=== PATIENT | female | born 1970 | race Caucasian/White ===

== ENCOUNTER 2020-04-18 11:47 | Emergency (ER) | payer BC ==
--- NOTE | 2020-04-18 12:45 | CR ---
DATE OF SERVICE: 04/18/20 CLINICAL DATA: Pain, swelling- trauma RIGHT FOOT: There are mildly displaced fractures through the proximal diaphysis of the third metatarsal and proximal metaphysis of the 4th metatarsal. No other acute abnormalities. IMPRESSION: Fractures of third and fourth metatarsals. [id number] [facility]
[2020-04-18] MEDS ORDERED: Acetaminophen/HYDROcodone 325-5 MG Tab ONE (13:00)
--- NOTE | 2020-04-18 13:56 | ER ---
REASON FOR EMERGENCY ROOM VISIT: Right ankle injury. HISTORY: This 50-year-old woman from [place], [place] was up staying at a cabin. She was walking down some steps this morning and missed the last step and suffered a twisting-type ankle injury, which resulted in subsequent severe pain over the proximal-most aspect of her dorsum of her right forefoot. PAST MEDICAL HISTORY: Unremarkable. MEDICATIONS: None. ALLERGIES: TO PENICILLIN AND OTHER ANTIBIOTIC. PHYSICAL EXAMINATION: GENERAL: Reveals a pleasant woman, in no acute distress. She does appear to be somewhat uncomfortable. VITAL SIGNS: She is afebrile. Pulse is 74, blood pressure 134/64, respiratory rate 16, O2 sats 98%. EXTREMITIES: Examination of her right leg shows that she has some mild swelling inferior to the right lateral malleolus, but more so over the proximal dorsal forefoot. She has some mild ecchymosis and point tenderness that seems to be worse over the third and fourth metatarsals proximally. Passive range of motion is difficult to assess because of pain and swelling, but there is no bony crepitus. Her foot pulses are normal. Sensation is intact. IMAGING: X-rays of her right foot reveal minimally displaced fractures at the proximal-most diaphysis of the third metatarsal and the proximal metaphysis of the fourth metatarsal. This is very minimally displaced. No other fracture or dislocation could be identified. IMPRESSION: Metatarsal fractures #3 and #4. PLAN: I stressed her on the importance of ice and elevation. We will place her in a boot for immobilization and advised her on nonweightbearing. She was fitted with crutches. She does live in the [facility] and assures us that she can get in to see a primary care provider tomorrow. We did provide her with a disc that will have the x-rays on it for her physician to look at. I think most likely this will be treatable conservatively. She was given Vicodin 5/325, dispensed #10, one every 4 hours p.r.n. pain. All questions were answered. She agrees with this plan. MITCHELL /[id number]
== END 2020-04-18 13:30 | disposition home or self-care (01) ==
LOC: LB.ED 11:47
DX: S92.331A Displaced fracture of third metatarsal bone, right foot, initial encounter for closed fracture (principal); S92.341A Displaced fracture of fourth metatarsal bone, right foot, initial encounter for closed fracture; Z88.0 Allergy status to penicillin; Z88.1 Allergy status to other antibiotic agents; X50.1XXA Overexertion from prolonged static or awkward postures, initial encounter; Y93.01 Activity, walking, marching and hiking
CPT/HCPCS: 73630-RT; 99283; 99283-25; A9270-GY